=== PATIENT | male | born 1950 | race Caucasian/White ===

== ENCOUNTER 2018-11-13 06:34 | Day surgery (SDC) | payer OTHER ==
[~2018-11-13 06:34] MED LIST: ASPIRIN LOW DOS81 M1 PO; B-121000 MC4 PO; BACTRIM DS1 TAB PO; CITALOPRAM20 MG PO; LISINOPRIL10 MG PO; METOPROL TAR25 MG PO; SIMVASTATIN40 MG PO; SIMVASTATIN5 MG PO; ZESTRIL10 M1 PO
[2018-11-13 09:55] VITALS: BP 146/86
== END 2018-11-13 10:00 | disposition home or self-care (01) | DRG 951 ==
LOC: ENDO 06:34 → ORM 10:55 → ENDO 10:55 → ORM 14:20
PROVIDERS: ATTEND Internal Medicine Gastroenterology
PROC: 0DBN8ZX Excision of Sigmoid Colon, Via Natural or Artificial Opening Endoscopic, Diagnostic (ICD-10-PCS; principal; 2018-11-13)
DX: Z12.11 Encounter for screening for malignant neoplasm of colon (principal); K63.5 Polyp of colon; K57.30 Diverticulosis of large intestine without perforation or abscess without bleeding; K64.4 Residual hemorrhoidal skin tags; K64.8 Other hemorrhoids; I10 Essential (primary) hypertension; Z86.010 Personal history of colon polyps; Z86.73 Personal history of transient ischemic attack (TIA), and cerebral infarction without residual deficits; Z95.0 Presence of cardiac pacemaker